=== PATIENT | female | born 1960 | race African-American/Black ===

== ENCOUNTER → 2017-02-18 | Day surgery (SDC) | payer OTHER ==
[~2017-02-18] MED LIST: CITA40TA12; DOXY100C2 PO; GABA-586; IV RINGERS,LACTATED 1000ML 1,000 ML IV SCH; LISI40TA; METF500T4; PARO40TA3 PO; PRAV40TA2; PROPOFOL 20 ML IV ONE; TRAM50TA; TRIA1TAB2
[2017-02-18 09:30] VITALS: BP 135/76
== END | disposition home or self-care (01) ==
LOC: ENDOS 07:31
PROVIDERS: ATTEND Internal Medicine Gastroenterology
DX: Z12.11 Encounter for screening for malignant neoplasm of colon (principal); K64.0 First degree hemorrhoids; F41.9 Anxiety disorder, unspecified; M19.90 Unspecified osteoarthritis, unspecified site; J45.909 Unspecified asthma, uncomplicated; F32.9 Major depressive disorder, single episode, unspecified; E11.9 Type 2 diabetes mellitus without complications; I10 Essential (primary) hypertension; F17.200 Nicotine dependence, unspecified, uncomplicated; Z83.3 Family history of diabetes mellitus; Z82.49 Family history of ischemic heart disease and other diseases of the circulatory system; Z86.69 Personal history of other diseases of the nervous system and sense organs; E78.00 Pure hypercholesterolemia, unspecified; Z87.39 Personal history of other diseases of the musculoskeletal system and connective tissue; Z86.39 Personal history of other endocrine, nutritional and metabolic disease
CPT/HCPCS: 45378; J2704